=== PATIENT | female | born 1990 | race Caucasian/White ===

== ENCOUNTER 2019-01-18 10:23 | Day surgery (SDC) | payer MEDICAID ==
[~2019-01-18] VITALS: Ht 160 cm; Wt 84.4 kg
[2019-01-18 10:29] VITALS: BP_SYST 132
--- NOTE | 2019-01-18 10:37 | NUR ---
Patient to ER bed 02 to gown for evaluation. Side rails up.
--- NOTE | 2019-01-18 10:40 | NUR ---
pt with sent from [facility], to have a procedure. Pt is currently 14 weeks pergnant and has micarried in the past. Will continue to monitor.
--- NOTE | 2019-01-18 10:43 | NUR ---
HARRIET Crowder at bedside examining patient.
--- NOTE | 2019-01-18 10:50 | NUR ---
# 22 gauge angiocath placed to RAC. Use of asceptic technique. Opsite placed over site. Blood return noted. Blood for lab drawn from site. Flushed with 10 cc of normal saline. No evidence of infiltration noted. Patient tolerated well.
--- NOTE | 2019-01-18 11:00 | NUR ---
pt is in [place].
[2019-01-18 11:04] LABS: BASOPHILS % (AUTO) 0.2 % (0.0-2.0); EOSINOPHILS % (AUTO) 0.1 % (0.0-4.0); HEMATOCRIT 40.2 % (36-48); HEMOGLOBIN 13.7 g/dL (12.0-16.0); LYMPHOCYTES # (AUTO) 1.5 K/uL (1.0-5.5); LYMPHOCYTES % (AUTO) 22.9 % (20.5-51.5); MEAN CORPUSCULAR HEMOGLOBIN 31 pg (27-31); MEAN CORPUSCULAR HGB CONC 34 % (32-36); MEAN CORPUSCULAR VOLUME 90 fL (79.0-98.0); MONOCYTES # (AUTO) 0.3 K/uL (0.0-1.0); NEUTROPHILS # (AUTO) 4.8 K/uL (1.8-7.7); NEUTROPHILS % (AUTO) 71.8 % (40.0-70.0); PLATELET COUNT (AUTO) 179 K/uL (130-430); RED BLOOD CELL COUNT(AUTO) 4.48 MIL/uL (4.2-6.2); RED CELL DISTRIBUTION WIDTH 13.2 % (9.0-15.0); WHITE BLOOD COUNT (AUTO) 6.6 K/uL (4.8-10.8)
[2019-01-18 11:10] LABS: CALCIUM 9.2 mg/dL (8.4-11.0); CREATININE 0.58 mg/dL (0.55-1.30); POTASSIUM 3.7 mmol/L (3.5-5.1)
[2019-01-18 11:15] LABS: PROTHROMBIN TIME 10.2 SECS (9.5-12.5)
--- NOTE | 2019-01-18 11:20 | NUR ---
pt returned from [facility].
[2019-01-18 11:37] LABS: ALBUMIN 3.4 g/dL (3.4-4.8); TOTAL BILIRUBIN 0.4 mg/dL (0.0-1.0)
--- NOTE | 2019-01-18 12:05 | NUR ---
Pt transferred to surgery to have a Clurage by [facility]. Consents have been signed and pt agrees to the procedure. IV is on the RAC 22g. IV is patent and has good blood return
--- NOTE | 2019-01-18 12:05 | NUR ---
Don OR nurse her to nut picker the pt. Report given.
[2019-01-18] MEDS ORDERED: LR 1,000 ML IV SCH (12:57)
[2019-01-18] MEDS ORDERED: ONDANSETRON HCL 4 MG/2 ML VIAL IVP PRN (13:00)
[2019-01-18] MEDS ORDERED: MORPHINE 4 MG/ML INJ. SYRINGE IVP PRN ×3 (13:00)
[2019-01-18 13:05] VITALS: BP_SYST 111
[2019-01-18] MEDS ORDERED: CEFAZOLIN 2 GM IVPB PREMIX 50 ML IV ONE (13:05)
[2019-01-18] MEDS ORDERED: NS IRRIG SOLN 1000 ML IR ONE (13:05)
[2019-01-18] MEDS ORDERED: BUPIVACAINE /PF 0.75% 10 ML VIAL INJ ONE (13:05)
[2019-01-18] MEDS ORDERED: LR 1,000 ML IV.SOLN IV ONE (13:05)
== END 2019-01-18 19:00 | disposition home or self-care (01) ==
LOC: SED 10:23 → SPU 12:05 → SDS 12:55 → SPU 12:56 → SDS 19:00
PROVIDERS: ATTEND Obstetrics & Gynecology
DX: O34.32 Maternal care for cervical incompetence, second trimester (principal); O99.282 Endocrine, nutritional and metabolic diseases complicating pregnancy, second trimester; E66.3 Overweight; Z79.01 Long term (current) use of anticoagulants; Z3A.14 14 weeks gestation of pregnancy
CPT/HCPCS: 36415; 59320; 76805; 80053; 84702; 85025; 85610; 85730; 86900; 86901; 87070; 87075; 87186; J0690; J3490; J7120; 76815

== ENCOUNTER 2019-07-02 06:40 | Inpatient (IN) | payer MEDICAID | END 2019-07-02 07:50 | disposition home or self-care (01) | DRG 566 | LOC: SPU 06:40 | PROVIDERS: ADMIT Obstetrics & Gynecology; ATTEND Obstetrics & Gynecology | DX: O26.893 Other specified pregnancy related conditions, third trimester (principal); R19.07 Generalized intra-abdominal and pelvic swelling, mass and lump; Z3A.37 37 weeks gestation of pregnancy ==

== ENCOUNTER 2019-07-09 08:30 | Inpatient (IN) | payer MEDICAID ==
[~2019-07-09] VITALS: Ht 160 cm; Wt 89.4 kg
[2019-07-09] MEDS ORDERED: LR 1,000 ML IV ONE (09:42)
[2019-07-09] MEDS ORDERED: CEFAZOLIN 2 GM IVPB PREMIX 50 ML IV ONE (10:00)
[2019-07-09 10:10] LABS: BASOPHILS % (AUTO) 0.3 % (0.0-2.0); EOSINOPHILS % (AUTO) 0.1 % (0.0-4.0); HEMATOCRIT 39.1 % (36-48); LYMPHOCYTES # (AUTO) 1.6 K/uL (1.0-5.5); LYMPHOCYTES % (AUTO) 23.6 % (20.5-51.5); MEAN CORPUSCULAR HEMOGLOBIN 31 pg (27-31); MEAN CORPUSCULAR HGB CONC 33 % (32-36); MEAN CORPUSCULAR VOLUME 93 fL (79.0-98.0); MONOCYTES # (AUTO) 0.4 K/uL (0.0-1.0); MONOCYTES % (AUTO) 6.2 % (1.7-9.3); NEUTROPHILS # (AUTO) 4.8 K/uL (1.8-7.7); NEUTROPHILS % (AUTO) 69.8 % (40.0-70.0); PLATELET COUNT (AUTO) 178 K/uL (130-430); RED BLOOD CELL COUNT(AUTO) 4.22 MIL/uL (4.2-6.2); RED CELL DISTRIBUTION WIDTH 13.5 % (9.0-15.0); WHITE BLOOD COUNT (AUTO) 6.9 K/uL (4.8-10.8)
[2019-07-09 10:27] LABS: BILIRUBIN,URINE NEGATIVE (NEGATIVE); CLARITY/URINE CLOUDY (CLEAR); COLOR,URINE YELLOW (YELLOW); GLUCOSE,URINE NEGATIVE (NEGATIVE); KETONES,URINE NEGATIVE (NEGATIVE); LEUKOCYTE ESTERASE ,URINE 3+ (NEGATIVE); NITRITE, URINE NEGATIVE (NEGATIVE); PROTEIN URINE NEGATIVE (NEGATIVE); UROBILINOGEN,URINE 0.2 (0.2-1.0)
[2019-07-09 10:32] LABS: BLOOD, URINE TRACE (NEGATIVE)
[2019-07-09 10:51] LABS: WBC,URINE 20-50 /HPF (0-3)
[2019-07-09 10:52] LABS: BACTERIA,URINE MODERATE /HPF (None Seen)
[2019-07-09] MEDS ORDERED: BUPIVACAINE /PF 0.75% 10 ML VIAL INJ ONE (12:05)
[2019-07-09] MEDS ORDERED: LR 1,000 ML IV.SOLN IV ONE (12:05)
[2019-07-09] MEDS ORDERED: MIDAZOLAM HCL 5 MG/5 ML VIAL IVP ONE (12:05)
[2019-07-09] MEDS ORDERED: ONDANSETRON HCL 4 MG/2 ML VIAL IVP ONE (12:05)
[2019-07-09] MEDS ORDERED: MORPHINE SULFATE 10MG/10ML PF AMP EP ONE (12:05)
[2019-07-09] MEDS ORDERED: ePHEDrine sulfate 50 MG/ML VIAL IVP ONE (12:05)
[2019-07-09] MEDS ORDERED: LR 1,000 ML IV SCH (12:44)
[2019-07-09] MEDS ORDERED: MEPERIDINE HCL/PF 25 MG/ML DISP.SYRIN IVP PRN (12:45)
[2019-07-09] MEDS ORDERED: METOCLOPRAMIDE HCL 10 MG/2 ML VIAL IVP PRN (12:45)
[2019-07-09] MEDS ORDERED: MORPHINE SULFATE 10MG/10ML PF AMP SP SCH (12:45)
[2019-07-09] MEDS ORDERED: ONDANSETRON HCL 4 MG/2 ML VIAL IVP PRN (12:45)
[2019-07-09] MEDS ORDERED: NALOXONE HCL 0.4 MG/ML AMP (NARCAN) IVP PRN (12:45)
[2019-07-09] MEDS ORDERED: DIPHENHYDRAMINE INJ 50 MG/ML VIAL IM PRN (12:45)
[2019-07-09] MEDS ORDERED: MEPERIDINE HCL/PF 50 MG/ML AMP IVP PRN ×2 (12:45)
[2019-07-09] MEDS ORDERED: KETOROLAC TROMETHAMINE 60 MG/2 ML VIAL IM PRN (12:45)
[2019-07-09] MEDS ORDERED: METHYLERGONOVINE MALEATE 0.2 MG/ML AMP ONE (12:54)
[2019-07-09] MEDS ORDERED: DIPHENHYDRAMINE INJ 50 MG/ML VIAL IVP ONE (13:45)
[2019-07-09] MEDS ORDERED: DIPHENHYDRAMINE INJ 50 MG/ML VIAL ONE (13:56)
[2019-07-09] MEDS ORDERED: OXYTOCIN/0.9 % SODIUM CHLORIDE 1,000 ML IV ONE (14:22)
[2019-07-09 17:19] VITALS: BP_SYST 119
[2019-07-10] MEDS ORDERED: IBUPROFEN 600 MG TABLET PO SCH (18:00)
[2019-07-10] MEDS ORDERED: OXYTOCIN/0.9 % SODIUM CHLORIDE 1,000 ML IV ONE (19:38)
[2019-07-10] MEDS ORDERED: LR 1,000 ML IV SCH (19:38)
[2019-07-10] MEDS ORDERED: SENNOSIDES/DOCUSATE SODIUM 1 TAB TABLET(SENOKOT-S) PO PRN (19:45)
[2019-07-10] MEDS ORDERED: LANOLIN 7 GM OINT. TP PRN (19:45)
[2019-07-10] MEDS ORDERED: BISACODYL 10 MG/SUPPOSITORY RC PRN (19:45)
[2019-07-10] MEDS ORDERED: MEASLES,MUMPS&RUBELLA VACC/PF 12500 UNIT/0.5 ML VIAL SUBQ PRN (19:45)
[2019-07-10] MEDS ORDERED: RHO(D) IMMUNE GLOBULIN/MALTOSE 1500 UNITS/1.3 ML (WINHRO) IM PRN (19:45)
[2019-07-10] MEDS ORDERED: OXYCODONE/ACETAMINOPHEN 5-325 TABLET PO PRN ×2 (19:45)
[2019-07-10] MEDS ORDERED: HYDROcodone/ACETAMIN 5-325 MG TAB (NORCO/ VICODIN) PO PRN (19:45)
[2019-07-10] MEDS ORDERED: DIPH-TET-PERTUS Vaccine 0.5 ML VIAL (ADACEL) I.M. PRN (19:45)
[2019-07-10] MEDS ORDERED: DOCUSATE SODIUM 100 MG CAPSULE PO PRN (19:45)
[2019-07-10] MEDS ORDERED: ANUSOL 1 EA SUPP.RECT (PREPARATION H) RC PRN (19:45)
[2019-07-10 20:13] LABS: BASOPHILS % (AUTO) 0.4 % (0.0-2.0); EOSINOPHILS % (AUTO) 0.1 % (0.0-4.0); HEMATOCRIT 30.1 % (36-48); HEMOGLOBIN 10.2 g/dL (12.0-16.0); LYMPHOCYTES # (AUTO) 1.2 K/uL (1.0-5.5); LYMPHOCYTES % (AUTO) 11.4 % (20.5-51.5); MEAN CORPUSCULAR HEMOGLOBIN 32 pg (27-31); MEAN CORPUSCULAR HGB CONC 34 % (32-36); MEAN CORPUSCULAR VOLUME 93 fL (79.0-98.0); MONOCYTES # (AUTO) 0.7 K/uL (0.0-1.0); MONOCYTES % (AUTO) 6.8 % (1.7-9.3); NEUTROPHILS # (AUTO) 8.2 K/uL (1.8-7.7); NEUTROPHILS % (AUTO) 81.3 % (40.0-70.0); PLATELET COUNT (AUTO) 167 K/uL (130-430); RED BLOOD CELL COUNT(AUTO) 3.24 MIL/uL (4.2-6.2); WHITE BLOOD COUNT (AUTO) 10.1 K/uL (4.8-10.8)
[2019-07-10] MEDS ORDERED: TEMAZEPAM 15 MG CAPSULE PO PRN (21:00)
[2019-07-11] MEDS: IBUPROFEN 600 MG TABLET PO SCH ×4 (06:00→18:14)
[2019-07-11] MEDS ORDERED: OXYTOCIN 10 UNIT/ML VIAL IV ONE (12:05)
[2019-07-11] MEDS: SIMETHICONE 80 MG TAB.CHEW PO PRN ×2 (12:33→18:14)
== END 2019-07-11 18:50 | disposition home or self-care (01) | DRG 540 ==
LOC: SPU 09:25
PROVIDERS: ADMIT Obstetrics & Gynecology; ATTEND Obstetrics & Gynecology
PROC: 10D00Z1 Extraction of Products of Conception, Low, Open Approach (ICD-10-PCS; principal; 2019-07-09 12:00)
DX: O69.81X0 Labor and delivery complicated by cord around neck, without compression, not applicable or unspecified (principal); D62 Acute posthemorrhagic anemia; O34.211 Maternal care for low transverse scar from previous cesarean delivery; L02.93 Carbuncle, unspecified; O99.72 Diseases of the skin and subcutaneous tissue complicating childbirth; Z37.0 Single live birth; Z3A.38 38 weeks gestation of pregnancy
CPT/HCPCS: 36415; 81000-TC; 85025; 86886; 86900; 86901; 87086; 94760; J0690; J1200; J2210; J2250; J2274; J2405; J2590; J3490; J7120